=== PATIENT | female | born 1975 | race Caucasian/White ===

== ENCOUNTER 2025-04-03 16:35 | Emergency (ER) | payer BC, SELFPAY ==
[2025-04-03 16:43] VITALS: BP 180/107; PULSE 79; RESP 18; TEMP 36.6; O2SAT 97
[2025-04-03 16:45] VITALS: PULSE 70; O2SAT 97; BMI 27.4
--- NOTE | 2025-04-03 16:45 | EKG_ITS ---
[facility] Test Date: 2025-04-03 Pat Name: EDA NICHOLS Department: Room: - Gender: Female [employer] Electrical Engineer: : 1975 Requested By: ED Temporary Provider Order Number: [id number] Reading MD: ED Temporary Provider Measurements Intervals [place] Rate: 75 P: 54 [place]: 177 QRS: 9 QRSD: 85 T: 40 QT: 413 QTc: 463 Interpretive Statements SINUS RHYTHM LOW QRS VOLTAGE IN PRECORDIAL LEADS [QRS DEFLECTION < 1.0 mV IN CHEST LEADS] No previous ECG available for comparison /store/S0/[id number]
--- NOTE | 2025-04-03 16:49 | XR_ITS ---
Examination: CT brain head without contrast. 2-D sagittal coronal reconstructions Date and time of exam:April 03, 2025, 1745 hours. INDICATIONS: Dizziness and headache beginning one hour ago. CTDI: vol (mGy):46.5. DLP: (mGycm):932. Technique: Multiple CT axial sections of the brain have been obtained, 5 mm slice thickness. Contrast has not been administered. 2-D sagittal, coronal reconstructions have been obtained Low dose protocols were performed. One or more of the following dose reduction techniques were used; automated exposure control, adjustment of the mA and/or KV according to patient size, use of iterative reconstruction technique. Findings: No significant ventricular enlargement. Intra-axial or extra-axial hemorrhage density is not seen. No mass effect or midline shift Basal cisterns are not remarkable. Fourth ventricle is midline. Cranial vault intact. Minimal acute left sphenoid sinusitis Impression: Negative for acute hemorrhage, mass effect or midline shift
--- NOTE | 2025-04-03 16:53 | PD.EDDIZZY ---
ED Dizzyness RME/HPI General Chief Complaint: Dizziness Stated Complaint: DIZZINESS AND WEAKNESS Time Seen by Provider: 04/03/25 16:48 Source: patient Arrival date/time: 04/03/25 16:35 This is a case of 50-year-old female who was brought by the ambulance with medical history of hypertension came into the emergency room due to dizziness headache nausea vomiting for 1 day associated with ringing on both ears no ear pain no ear discharge no decreased hearing patient denies any numbness weakness tingling sensation denies any blurring of vision Limitations: no limitations Related Data Home Medications ?Medication ?Instructions ?Recorded ?Confirmed sertraline 25 mg tablet (Zoloft) PO HS #0 tabs 05/26/16 Previous Rx's ?Medication ?Instructions ?Recorded ferrous sulfate 325 mg (65 mg 325 mg PO BIDWM #60 tabs 05/27/16 iron) tablet (Feosol) amoxicillin 875 mg-potassium 1 tab PO BID 10 days #20 tabs 04/03/25 clavulanate 125 mg tablet lisinopril 5 mg tablet 5 mg PO QDAY 30 days #30 tabs 04/03/25 meclizine 25 mg tablet 25 mg PO TID PRN dizziness #20 tabs 04/03/25 ofloxacin 0.3 % ear drops 10 drp otic (ear) QDAY 7 days #10 04/03/25 mL ondansetron 4 mg disintegrating 4 mg PO Q8H PRN nausea and 04/03/25 tablet vomiting #20 tabs Allergies Allergy/AdvReac Type Severity Reaction Status Date / Time NKA Allergy Unknown Uncoded 05/27/16 01:49 Review of Systems Review of Systems Systems Reviewed: All systems reviewed, normal except as documented Constitutional Constitutional: Reports system reviewed and no additional complaints, except as documented, Reports as per HPI, Denies chills, Denies fever(s), Denies frequent falls, Reports headache(s) and Denies weakness Eyes Eyes: Reports system reviewed and no additional complaints, except as documented, Reports as per HPI, Denies blurry vision and Denies loss of vision ENT Ears, Nose, Mouth, and Throat: Denies abnormal hearing, Denies disequilibrium, Reports dizziness, Reports headache(s) and Reports vertigo Cardiovascular Cardiovascular: Reports system reviewed and no additional complaints, except as documented, Reports as per HPI, Denies chest pain, Denies dyspnea and Denies syncope Respiratory Respiratory: Reports system reviewed and no additional complaints, except as documented, Reports as per HPI and Denies dyspnea Gastrointestinal Gastrointestinal: Reports system reviewed and no additional complaints, except as documented, Reports as per HPI, Denies abdominal pain, Denies diarrhea, Reports nausea and Reports vomiting Musculoskeletal Musculoskeletal: Denies abnormal gait, Denies numbness and Denies tingling Neurologic Neurologic: Reports system reviewed and no additional complaints, except as documented, Reports as per HPI, Denies abnormal gait, Denies abnormal hearing, Denies abnormal movements, Denies abnormal speech, Denies behavioral changes, Denies burning sensations, Denies confusion, Denies convulsions, Denies disequilibrium, Reports dizziness, Denies localized weakness, Denies frequent falls, Reports headache(s), Denies lack of coordination, Denies loss of vision, Denies memory loss, Denies numbness, Denies other visual disturbances, Denies paresthesias, Denies radicular pain, Denies restless legs, Denies seizure-like activity, Denies sensory deficit, Denies syncope, Denies tingling, Denies tremor(s), Reports vertigo and Denies weakness Psychiatric Psychiatric: Denies behavioral changes, Denies confusion and Denies memory loss Past Medical History Past Medical History CARDIAC: Positive Hypertension; Negative Congestive Heart Failure RESPIRATORY: Negative Chronic Obstructive Pulmonary Disease (COPD) GENITOURINARY: Negative Renal Disease ENDOCRINE: Negative Diabetes Mellitus Type 1 or Diabetes Mellitus Type 2 Surgical History SURGICAL: Positive Section Social History SMOKING STATUS: Never smoker ED Exam General Limitations: Present no limitations General appearance: Present alert, in no apparent distress and other (Patient is awake alert oriented not in distress nontoxic looking well-hydrated well-nourished) Head Head exam: Present atraumatic, normocephalic and normal inspection Eye Eye exam: Present normal appearance, PERRL, EOMI and other (no pappiledema) ENT ENT exam: Present normal exam, normal oropharynx, mucous membranes moist and other (Bilateral ear canal red no discharge no swelling mild tender no mastoid tenderness tympanic membrane red red retracted bulging but not perforated) Neck Neck exam: Present normal inspection, full ROM and trachea midline Chest Chest inspection: Present normal inspection and symmetric chest wall rise; Absent tenderness or rash Respiratory Respiratory exam: Present normal lung sounds bilaterally; Absent respiratory distress, wheezes, stridor, accessory muscle use or prolonged expiratory phase Cardiovascular Cardiovascular exam: Present regular rate, normal rhythm and normal heart sounds; Absent bradycardia, tachycardia, irregular rhythm, systolic murmur or diastolic murmur Abdominal Exam Abdominal exam: Present soft and normal bowel sounds; Absent distention, tenderness, guarding, rebound, rigidity, diminished bowel sounds, hyperactive bowel sounds or hypoactive bowel sounds Extremities Exam Extremities exam: Present normal inspection and full ROM Back Exam Back exam: Present normal inspection and full ROM Neurological Exam Neurological exam: Present alert, oriented X3, CN II-XII intact, normal gait, reflexes normal and other (Awake alert oriented x 4 no focal deficit GCS 15/15 steady gait memory intact no slurring speech no facial droop negative Babinski CN II to XII is normal motor 5/5 in all extremities sensory +2 in all extremities reflex +2 in all extremities); Absent motor sensory deficit Expanded Neurological Exam Patient oriented to: Present person, place and time Speech: Present fluid speech (No slurring speech) Cranial nerves: Normal: EOM function (II, III, IV, ), facial sensation (V), facial palsy (VII), gag reflex (IX), spinal accessory function (XI) and tongue deviation (XII) Cerebellar function: Normal: finger to nose and heel to cerrato Cerebellar function: Present normal gait Motor strength - LUE: 5/5 Motor strength - RUE: 5/5 Motor strength - LLE: 5/5 Motor strength - RLE: 5/5 Upper motor neuron exam: Normal: bo neglect, pronator drift, Babinski sign and sensory extinction Sensory exam upper extremity: Normal: light touch, pin prick, temperature and 2 point discrimination Sensory exam lower extremity: Normal: light touch, pin prick, temperature and 2 point discrimination DTR: 2+: biceps (L) and biceps (R) Psychiatric Psychiatric exam: Present normal affect and normal mood Skin Skin exam: Present warm, dry, intact and normal color Course Quality Measures none Orders Category Date Time Status EKG (ED ONLY) *Do not use* NOW Care 04/03/25 16:[address] head/brain wo con Stat Exams 04/03/25 16:49 Completed EKG (ED Only) Stat Exams 04/03/25 16:45 Draft CBC Stat Lab 04/03/25 17:05 Completed Comprehensive Metabolic Panel Stat Lab 04/03/25 17:05 Completed HCG Qualitative,Urine Stat Lab 04/03/25 18:44 Completed Troponin I Stat Lab 04/03/25 17:05 Completed Urinalysis Stat Lab 04/03/25 18:44 Completed Ondansetron Inj [Zofran Inj] Med 04/03/25 16:52 Discontinued 4 mg IVP X1 ONE Sodium Chloride 0.9% 1000 ml [Ns] 1,000 ml Med 04/03/25 16:52 Discontinued IV 999 mls/hr cloNIDine HCL [Catapres] Med 04/03/25 16:50 Discontinued 0.2 mg PO X1 ONE Vital Signs Vital signs: Vital Signs Temperature 97.9 F 04/03/25 16:43 Pulse Rate 79 04/03/25 16:43 Respiratory Rate 18 04/03/25 16:43 Blood Pressure 180/107 H 04/03/25 16:43 Pulse Oximetry (%) 97 04/03/25 16:43 Oxygen Delivery Method Room Air 04/03/25 16:43 Patient temperature 97.9 blood pressure is 180/107 not tachycardic not tachypneic oxygen saturation is 97% in room air Dizziness MDM Narrative MDM Narrative:: This is a case of 50-year-old female who was brought by the ambulance with medical history of hypertension came into the emergency room due to dizziness headache nausea vomiting for 1 day associated with ringing on both ears no ear pain no ear discharge no decreased hearing patient denies any numbness weakness tingling sensation denies any blurring of vision physical examination patient is awake alert oriented not in distress nontoxic looking neurological exam is normal awake alert oriented no focal deficit GCS 15/15 steady gait negative Babinski memory intact no facial droop no slurring of speech motor 5/5 reflexes +2 sensory +2 noted bilateral ear tympanic membrane red bulging retracted not perforated ear canal red no discharge mild tender no mastoid tenderness suggestive of otitis media the rest of the physical examination neurological exam is normal and unremarkable blood test showed leukocytosis 14,000 may be due to urinary tract infection positive WBC in urine and ear infection no anemia kidney and liver function is normal no electrolyte imbalance troponin is negative EKG showed sinus rhythm at [address] or T wave or Q wave abnormality CT scan showed normal negative for acute hemorrhage midline shift or mass patient was given clonidine for blood pressure of 180/107 continue to monitor blood pressure and noted to be 145/89 patient dizziness relieved and resolved at this point patient will be discharged home I increased the lisinopril to 5 mg daily until she sees the primary care physician I have a long discussion with the patient regarding her blood pressure she will continue to monitor blood pressure at home and return in the emergency room if the blood pressure greater than 160/100 or become symptomatic modified diet and regular exercise was also advised she was also prescribed with Augmentin for urinary tract infection and otitis media she was also given meclizine for dizziness Zofran for vomiting patient will discharge home in stable condition patient is well-informed for any worsening recurrence worsening symptoms she will return in the emergency room immediately or call 911 Patient was discharged with comfortable condition walking with stable gait. Patient verbalized no further complains explained diagnosis and answered patient question. Patient is comfortable with the proposed management plan including the need to follow up with his/her primary care physician and any specialist if applicable Discussed patient for any urgent condition or worsening sx, He/She needed to go to emergency room immediately or call 911. Patient acknowledge the responsibility to follow up as instructed and to monitor her/his symptoms. For any persistence of the symptoms for more than 3-5 days return precaution advised. Discussed the result of the test and was given printed discharge instruction Patient data External records reviewed:: [facility] previous records Clinical information provided by:: patient Social determinants that could affect healthcare access:: none Patient has the following chronic illnesses:: None How is presenting disease/condition affected by chronic disease/condition?: no chronic disease Evaluation data The following diagnostics were reviewed and interpreted by me:: lab results, radiology exam(s) and EKG tracing(s) Lab and/or radiology exams considered but not ordered:: Reviewed Interpretation Summary: Reviewed Medications / Prescriptions Medications or Prescriptions considered but not ordered:: Given Medication administrations:: Medication Administration History Discontinued Medications Clonidine (Clonidine Hcl 0.1 Mg Tablet) 0.2 mg PO X1 ONE Stop: 04/03/25 16:51 Last Admin: 04/03/25 17:09 Dose: 0.2 mg Documented By: EF Sodium Chloride (Ns) 1,000 mls @ 999 mls/hr IV .Q1H1M ONE Stop: 04/03/25 17:52 Last Infusion: 04/03/25 18:09 Dose: Infused Documented By: Admin: 04/03/25 17:08 Dose: 999 mls/hr Documented By: EF Ondansetron HCl (Ondansetron Inj 2 Mg/Ml Inj 2 Ml) 4 mg IVP X1 ONE; Protocol Stop: 04/03/25 16:53 Last Admin: 04/03/25 17:09 Dose: 4 mg Documented By: EF Given Consultations Consultation(s) initiated? (list below): No Diagnosis Dizziness Differential Diagnosis: benign paroxysmal positional vertigo, orthostatic hypotension, transient cerebral ischemia and other (Otitis media urinary tract infection) Most likely diagnosis given after review of the tests above:: Otitis media urinary tract infection dizziness uncontrolled hypertension Admission Indicated Admission indicated?: not indicated Explain why admission is indicated or not indicated:: Not indicated Admission Request Was there a request for admission?: No Admission Attestation Admission request attestation: Not indicated Disposition Plan Disposition Plan: Discharge Discharge Attestation Discharge Attestation: The patient and all family members were given an opportunity to ask questions and understood the discharge instructions. Discharge instructions specifically effects, indications for sooner follow up or return to the emergency department, and the expected course of current diagnosis. Patient condition: Stable Discharge Plan Plan Patient Disposition: HOME (Self Care) Patient condition on transfer: Stable Prescriptions/Referrals Prescriptions/Med Rec: New lisinopril 5 mg tablet 5 mg PO QDAY 30 Days Qty: 30 0RF amoxicillin-pot clavulanate 875-125 mg tablet 1 tab PO BID 10 Days Qty: 20 0RF ofloxacin 0.3 % drops 10 drp otic (ear) QDAY 7 Days Qty: 10 0RF meclizine 25 mg tablet 25 mg PO TID PRN (Reason: dizziness) Qty: 20 0RF ondansetron 4 mg tablet,disintegrating 4 mg PO Q8H PRN (Reason: nausea and vomiting) Qty: 20 0RF No Action sertraline [Zoloft] 25 MG tablet PO HS Qty: 0 ferrous sulfate [Feosol] 1 TAB tablet 325 mg PO BIDWM Qty: 60 1RF Referrals: Rakel Ryan MD [Primary Care Provider] - In 1 week Problem List Clinical Impression: Dizziness, Hypertension, uncontrolled, Otitis media, Urinary tract infection Patient/Caregiver Discharge Instructions Education Materials: Controlling High Blood Pressure, Urinary Tract Infections in Women, ED Dizziness, Uncertain Cause, ED Otitis Media Antibiotic ... 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 and treatment of uncontrolled hypertension you need to monitor your blood pressure twice a day and record it and bring it to your primary care physician to review your medication for hypertension worsening symptoms or any emergent concern or recurrence of the symptoms return to the emergency room immediately or call 911 if your blood pressure greater than 160/100 or become symptomatic return to the emergency room immediately or call 911 avoid fat fried high cholesterol food regular exercise size and keep hydrated take your medication and finish your course of antibiotic follow-up with your primary care physician to be referred to neurologist for your head dizziness Print Language: Lao Stand Alone Forms: Mindi Award Info., Patient Portal Info Letter PA/MIGUEL ANGEL Supervising Physician MILY/MIGUEL ANGEL Supervising Physician: dr ascencio
[2025-04-03 16:54] VITALS: BP 169/94; PULSE 71; RESP 18; O2SAT 98
[2025-04-03] MEDS: SODIUM CHLORIDE 0.9% 1000 ML 1,000 ML 999 ML IV (17:08)
[2025-04-03 17:09] VITALS: BP 169/94; PULSE 67
[2025-04-03] MEDS: ONDANSETRON INJ 2 MG/ML INJ 2 ML 4 MG IVP (17:09)
[2025-04-03 17:20] LABS: Basophils # (Auto) 0.1 Thou/mm3 (0.0-0.2); Basophils % (Auto) 1 % (0-2.5); Eosinophils # (Auto) 0.4 Thou/mm3 (0.0-0.5); Eosinophils % (Auto) 3 % (0-10); Hematocrit 41.7 % (36.0-46.0); Hemoglobin 14.6 g/dL (12.0-16.0); Immature Granulocytes Auto 0.05 Thou/mm3 (0.00-0.00); Lymphocytes # (Auto) 4.7 Thou/mm3 (1.0-4.8); Lymphocytes % (Auto) 34 % (10-50); Mean Corpuscular HGB Conc 35.0 g/dl (31.0-37.0); Mean Corpuscular Hemoglobin 31.1 pg (25.0-35.0); Mean Corpuscular Volume 89 fL (80-100); Monocytes # (Auto) 0.7 Thou/mm3 (0.0-0.8); Monocytes % (Auto) 5 % (0-12); Neutrophils # (Auto) 8.0 Thou/mm3 (1.8-7.7); Neutrophils % (Auto) 57 % (37-80); Nucleated Red Blood Cell # 0.00 Thou/mm3 (0.00-0.00); Nucleated Red Blood Cell % 0 /100 WBC (0); Platelet Count 370 Thou/mm3 (140-440); RDW Standard Deviation 43.8 fL (36.4-46.3); Red Blood Count 4.69 Miln/mm3 (4.00-5.20); White Blood Count 14.0 Thou/mm3 (3.6-11.0)
[2025-04-03 17:42] LABS: Alanine Aminotransferase 14 U/L (10-49); Albumin, Serum 4.4 gm/dL (3.5-5.0); Albumin/Globulin Ratio 1.6 (1.2-2.2); Alkaline Phosphatase 52 U/L (46-116); Anion Gap 12 (7-16); Aspartate Amino Transferase 19 U/L (0-34); BUN/Creatinine Ratio 13 Ratio (12-20); Bilirubin,Total 0.4 mg/dL (0.3-1.2); Blood Urea Nitrogen 10 mg/dL (9-23); Calcium 9.3 mg/dL (8.3-10.6); Calcium (Corrected) 9.3 mg/dL (8.5-10.1); Carbon Dioxide 24.1 mMol/L (20.0-31.0); Chloride 102 mMol/L (98-107); Creatinine (Component) 0.8 mg/dL (0.6-1.3); Estimated Creatinine Clearance 89.2 mL/min (>60); Globulin 2.8 gm/dL (2.3-3.5); Glucose 105 mg/dL (74-106); Osmolality,Calculated 274 (275-295); Potassium 3.5 mMol/L (3.4-5.1); Sodium 138 mMol/L (136-145); Total Protein 7.2 gm/dL (5.7-8.2); Troponin I < 0.020 ng/mL (0.0-0.045); eGFR > 60 See Note
[2025-04-03 18:15] VITALS: BP 167/79; PULSE 67; RESP 16; TEMP 36.6; O2SAT 100
[2025-04-03 18:49] LABS: Collection Type, Urine Clean Catch
[2025-04-03 19:03] LABS: Bacteria,Urine Rare; Bilirubin,Urine Negative (Negative); Blood,Urine 1+ (Negative); Clarity,Urine Clear (Clear/Hazy); Color,Urine Lt-Yellow (Lt Yel-Yel); Glucose, Urine Negative (Negative); Ketones,Urine 1+ (Negative); Leukocyte Esterase,Urine Positive (Negative); Nitrite,Urine Negative (Negative); PH,Urine 6.5 (5.0-7.0); Protein,Urine 1+ (Neg - Trace); RBC,Urine 8 /hpf (0-3); Specific Gravity,Urine 1.019 (1.001-1.035); Squamous Epithelial Cell,Urine 1 /hpf (0-5); Urobilinogen,Urine Negative mg/dL (0.0-1.0); WBC,Urine 4 /hpf (0-5)
[2025-04-03 19:06] LABS: HCG Qualitative,Urine Negative
[2025-04-03 20:27] VITALS: BP 154/94; PULSE 70; RESP 18; O2SAT 98
== END 2025-04-03 20:40 | disposition home or self-care (01) ==
PROVIDERS: Nurse Practitioner Family; Emergency Provider Emergency Medicine; PCP Internal Medicine
DX: H66.93 Otitis media, unspecified, bilateral (principal); N39.0 Urinary tract infection, site not specified; R42 Dizziness and giddiness; R51.9 Headache, unspecified; I10 Essential (primary) hypertension
CPT/HCPCS: 36415; 70450; 80053; 81001; 81025; 84484; 85025; 93005; 96361; 96372; 96374; 99284; J2405; J7030; A9270

== ENCOUNTER → 2025-09-13 | Outpatient (CLI) | payer BC, SELFPAY ==
--- NOTE | 2025-09-13 09:30 | XR_ITS ---
Examination: Transvaginal ultrasound of the pelvis, complete Technique: Transvaginal sonographic images pelvis performed using kaufman scale imaging Exam date and time: September 13, 2025, 0923 hours INDICATIONS: Irregular heavy menses beginning 1 month ago, pelvic pain 2 months FINDINGS: Uterus 8.4 cm lateral fundal fibroid degeneration 19 x 17 x 17 mm 5 mm calcification in the endometrium Mild free fluid in the endometrium Endometrial stripe 0.3 cm Ovaries obscured by bowel gas IMPRESSION: Uterine fundal area fibroid degeneration 19 x 17 x 17 mm, consider transvaginal pelvic sonography follow-up.
== END | disposition home or self-care (01) ==
DX: D25.9 Leiomyoma of uterus, unspecified (principal)
CPT/HCPCS: 76830